=== PATIENT | male | born 1950 | race Caucasian/White ===

== ENCOUNTER 2020-04-11 18:36 | Emergency (ER) | payer BC, OTHER ==
[~2020-04-11] VITALS: Ht 167.6 cm; Wt 78.0 kg
--- NOTE | 2020-04-11 18:38 | NUR ---
Patient to ER triage room for evaluation, Dr Pizarro notified since no rooms available at this time, pt states he started to have headache on L side of head at 0830 am, pt c/o abnormal vision while looking through both eyes, states images are higher on R eye compared to L eye, no facial drop noted , intact ROM and speech at this time,strong clinical team lead, pt states speech is affected sometimes after starting BP medications several weeks ago,pt follows commands, will cont to monitor.per Dr Pizarro no code stroke needs to be call at this time since symptoms started several hours ago.
--- NOTE | 2020-04-11 18:38 | NUR ---
Note cedrickone in EDM - 04/11/20 at 2010 by [email or web address] Patient to ER triage room for evaluation, Dr Pizarro notified, pt states he started to have headache on L side of head at 0830 am, pt c/o abnormal vision while looking through both eyes, no facial drop, intact RM and speech at this time,pt states speech is affected somethimes after starting BP medications, will cont to monitor.
[2020-04-11 18:41] VITALS: BP_SYST 183
--- NOTE | 2020-04-11 18:43 | NUR ---
Dr Pizarro at bedside examining patient
--- NOTE | 2020-04-11 18:47 | NUR ---
Placed in room 03 . Placed on business services coordinator, blood pressure machine and pulse oximeter. To gown for exam. Side rails up.
--- NOTE | 2020-04-11 19:15 | NUR ---
Patient transported to radiology via GURNEY, accompanied by VAIBHAV.
--- NOTE | 2020-04-11 19:27 | NUR ---
PT RETURNED FROM CT.
--- NOTE | 2020-04-11 19:30 | NUR ---
PT CAME FROM HOME C/O LEFT SIDED HEADACHE THAT STARTED AT 0830 THIS MORNING. PT STATES HIS VISION IS BLURRY WHEN BOTH EYES ARE OPEN, HE SEE'S TWO PICTURES UP AND DOWN. PT REPORTS HE HAS TROUBLE TALKING. HE REMEMBERS WHAT HE IS WANTING TO SAY, BUT HAS TROUBLE EXPRESSING HIS THOUGHTS WITH WORDS. PT DENIES WEAKNESS, CHEST PAIN, SOB. PT REPORTS HX OF LOW BLOOD PRESSURE X 2 WEEKS. PT CANNOT REMEMBER WHICH MEDICATIONS HE TAKES. WILL CONTINUE TO MONITOR.
--- NOTE | 2020-04-11 19:52 | NUR ---
REQUEST FOR TELEMED COMPLETED. BRITTANY AT BEDSIDE.
--- NOTE | 2020-04-11 19:55 | NUR ---
BLOOD SUGAR AT BEDSIDE 108
[2020-04-11 20:00] LABS: CREATININE 0.95 mg/dL (0.55-1.30); POTASSIUM 4.2 mmol/L (3.5-5.1)
--- NOTE | 2020-04-11 20:00 | NUR ---
# 20 gauge angiocath placed to LAC. Use of asceptic technique. Opsite placed over site. Blood return noted. Flushed with 10 cc of normal saline. No evidence of infiltration noted. Patient tolerated well.
[2020-04-11 20:03] LABS: BASOPHILS % (AUTO) 0.3 % (0.0-2.0); EOSINOPHILS % (AUTO) 0.2 % (0.0-4.0); HEMATOCRIT 42.2 % (36-54); HEMOGLOBIN 14.4 g/dL (14.0-18.0); LYMPHOCYTES # (AUTO) 1.2 K/uL (1.0-5.5); LYMPHOCYTES % (AUTO) 12.2 % (20.5-51.5); MEAN CORPUSCULAR HEMOGLOBIN 30 pg (27-31); MEAN CORPUSCULAR HGB CONC 34 % (32-36); MEAN CORPUSCULAR VOLUME 89 fL (79.0-98.0); MONOCYTES # (AUTO) 0.5 K/uL (0.0-1.0); MONOCYTES % (AUTO) 5.1 % (1.7-9.3); NEUTROPHILS # (AUTO) 7.9 K/uL (1.8-7.7); NEUTROPHILS % (AUTO) 82.2 % (40.0-70.0); PLATELET COUNT (AUTO) 279 K/uL (130-430); RED BLOOD CELL COUNT(AUTO) 4.75 MIL/uL (4.2-6.2); RED CELL DISTRIBUTION WIDTH 13.2 % (9.0-15.0); WHITE BLOOD COUNT (AUTO) 9.6 K/uL (4.8-10.8)
--- NOTE | 2020-04-11 20:03 | NUR ---
Dr Brown speaking to pt's at triage room
--- NOTE | 2020-04-11 20:04 | NUR ---
PT SPEAKING TO NEURO DR. MARITA KENNEY ON TELEMED.
[2020-04-11 20:05] LABS: ALBUMIN 3.9 g/dL (3.4-4.8); PROTHROMBIN TIME 9.9 SECS (9.5-12.5); TOTAL BILIRUBIN 0.6 mg/dL (0.0-1.0)
--- NOTE | 2020-04-11 20:15 | NUR ---
TELEMED DR. MARITA KENNEY RECOMMENDS MRI TO BE DONE.
--- NOTE | 2020-04-11 20:20 | NUR ---
REQUEST FOR TRANSFER BEING DONE BY B[facility]LEE TECH.
--- NOTE | 2020-04-11 20:31 | NUR ---
# 20 gauge angiocath placed to RFA. Use of asceptic technique. Opsite placed over site. Blood return noted. Flushed with 10 cc of normal saline. No evidence of infiltration noted. Patient tolerated well.
--- NOTE | 2020-04-11 20:56 | NUR ---
CALLED AND GAVE REPORT TO CELSO DANIELLE AT [facility].
--- NOTE | 2020-04-11 21:11 | NUR ---
Patient to be transferred to [facility]. Is being transferred due to higher level of care. Receiving facility has accepting physician and available space. ER physician has signed transfer form. Patient or responsible constitution party has agreed to transfer and signed form. Patient belongings inventoried and will be sent with patient. Copy of nursing notes, lab reports, EKG, Physicians Orders and X-rays to be sent with patient. Report called to CELSO DANIELLE at receiving facility. Receiving physician is DR. SOTOMAYOR. [facility] ambulance service has been called for transfer. ETA is NOW.
[2020-04-11 21:12] VITALS: BP_SYST 180
--- NOTE | 2020-04-11 21:12 | NUR ---
REPORT GIVEN TO [facility] FOR TRANSPORT TO [facility].
== END 2020-04-11 21:12 | disposition short-term general hospital (02) ==
LOC: SED 18:36
DX: I63.9 Cerebral infarction, unspecified (principal); I10 Essential (primary) hypertension; Z86.73 Personal history of transient ischemic attack (TIA), and cerebral infarction without residual deficits
CPT/HCPCS: 36415; 70450-TC; 71045; 80053; 82962; 84484; 85025; 85610-TC; 85730-TC; 93005; 99285